=== PATIENT | male | born 1965 | race Caucasian/White ===

== ENCOUNTER 2018-04-26 08:12 | Day surgery (SDC) | payer OTHER ==
[2018-04-22 12:18] VITALS: BMI 31.0
[2018-04-26] MEDS ORDERED: PROPOFOL 20 ML ONE ×3 (09:14)
[2018-04-26 10:23] VITALS: TEMP 97.7
[2018-04-26 10:46] VITALS: BP 105/60; PULSE 69
== END 2018-04-26 10:35 | disposition home or self-care (01) ==
LOC: FASU-ENDO 08:12
PROVIDERS: ATTEND Internal Medicine Gastroenterology
PROC: 0DJD8ZZ Inspection of Lower Intestinal Tract, Via Natural or Artificial Opening Endoscopic (ICD-10-PCS; principal; 2018-04-26 09:43)
DX: Z12.11 Encounter for screening for malignant neoplasm of colon (principal)